=== PATIENT | female | born 1990 | race African-American/Black ===

== ENCOUNTER → 2016-11-11 | Outpatient (CLI) | payer OTHER ==
[2016-05-28] VITALS: BP 105/57
[~2016-11-11] MED LIST: HYDR-971 PO
== END | disposition home or self-care (01) ==
LOC: SPEC 11:40
PROVIDERS: ATTEND Family Medicine
DX: Z34.90 Encounter for supervision of normal pregnancy, unspecified, unspecified trimester (principal)
CPT/HCPCS: 36415; 87653

== ENCOUNTER 2016-12-04 18:32 | Inpatient (IN) | payer OTHER ==
[~2016-12-04] VITALS: Ht 175.3 cm; Wt 110.2 kg
[2016-12-04] MEDS ORDERED: 0.9 % SODIUM CHLORIDE 10 ML DISP.SYRIN. IV PRN (18:45)
[2016-12-04] MEDS ORDERED: TERBUTALINE 1 MG/ML VIAL. SQ PRN (18:45)
[2016-12-04] MEDS ORDERED: DINOPROSTONE 10 MG SUPP.VAG VG ONE (18:45)
[2016-12-04] MEDS ORDERED: OXYTOCIN 30 UNIT/500 ML PREMIX 500 ML IV PRN (18:45)
[2016-12-04] MEDS ORDERED: IBUPROFEN 600 MG TABLET. PO PRN (18:45)
[2016-12-04] MEDS ORDERED: LIDOCAINE 1% PF 30 ML VIAL. INJ PRN (18:45)
[2016-12-04 19:45] LABS: BASO % 0 % (0-3); EOS % 1 % (0-3); HEMATOCRIT 29.3 % (36.0-47.0); HEMOGLOBIN 9.5 g/dL (12.0-15.5); LYMPH # 1.4 x10^3/uL (1.0-4.8); LYMPH % 22 % (24-48); MEAN CORPUSCULAR HEMOGLOBIN 28 pg (25-35); MEAN CORPUSCULAR HGB CONC 33 g/dL (31-37); MEAN CORPUSCULAR VOLUME 85 fL (79-100); MONO % 8 % (0-9); NEUT % 69 % (31-73); PLATELET COUNT 192 x10^3/uL (140-400); RED BLOOD COUNT 3.44 x10^6/uL (3.50-5.40); RED CELL DISTRIBUTION WIDTH 15.6 % (11.5-14.5); WHITE BLOOD COUNT 6.2 x10^3/uL (4.0-11.0)
[2016-12-04 21:29] VITALS: BP 121/75
[2016-12-05] MEDS ORDERED: ZOLPIDEM 5 MG TABLET. PO PRN
[2016-12-05] MEDS ORDERED: AMPICILLIN SODIUM 2 GM in IV NORMAL SALINE 100ML 100 ML IV ONE (08:00)
[2016-12-05] MEDS ORDERED: OXYTOCIN 30 UNIT/500 ML PREMIX 500 ML IV PRN (08:00)
--- NOTE | 2016-12-05 08:32 | PDOC1 ---
OB - History Hx of Present Care: Good Care Ultrasounds: Normal mid trimester US Obstetrical Complications: None Medical Complications: Respiratory (Asthma- well controlled) Past Family/Social History * Past Medical, Surgical, Family and Obstetric Histories reviewed from chart. Blood Type: O+ Rubella: Immune RPR/VDRL: Negative GBS Status: Positive HBsAG: Unknown (Surface Antibody positive- immune) OB - Chief Complaint & HPI Date of Admission: Date of Admission: Dec 04, 2016 at 18:32 Chief Complaint/History : 2 Para: 1 EDC: Dec 12, 2016 EGA: 39wga Reason for admission: induction of labor Indication for induction: maternal discomfort Admission Nurse Assessment Rev: Yes Problems: OB - Admission Exam Physical Exam Vitals: VS - Last 72 Hours, by Label Date Time Temp Pulse Resp B/P Pulse Ox O2 Delivery O2 Flow Rate FiO2 12/04/16 21:29 97.6 93 18 121/75 Room Air 97.6 HEENT: Normal, Nasal Mucosa Normal, Oropharynx Normal, Moist Membranes, Fontanelles Normal Heart: Regular Rate Lungs: Clear, Equal Abdomen: Gravid Extremities: Normal Pulses, No tenderness or swelling Reflexes: Normal Cervical Dilatation: None Effacement: 75% Station: -2 Membranes: Intact Heart Rate: Normal Accelerations: Accelerations Present Decelerations: No decelerations Short Term Variability: Present District Captain Variability: Moderate Contractions on Admission: None A/P Pt is a 26yo @39wga admitted for IOL 1)IOL- s/p Cervadil last night. Will start Pitocin this morning 2)GBS+ will wait until pt is in labor prior to starting antiobiotics 3)Pain medication- pt interested in IV pain medicine 4)Bottlefeeding Problems: LALIT BOWMAN MD Dec 05, 2016 08:32
[2016-12-05] MEDS: IV RINGERS,LACTATED 1000ML 1,000 ML IV SCH ×2 (08:39→16:52)
[2016-12-05] MEDS: AMPICILLIN SODIUM 1 GM in IV NORMAL SALINE 50ML 50 ML IV SCH ×2 (12:00→20:00)
[2016-12-05] MEDS ORDERED: DINOPROSTONE 10 MG SUPP.VAG VG ONE (17:30)
[2016-12-06] MEDS ORDERED: OXYTOCIN in NORMAL SALINE PREMIX 30 UNIT/500 ML BAG. IV ONE (07:00)
[2016-12-06] MEDS ORDERED: IBUPROFEN 600 MG TABLET. PO PRN (13:30)
[2016-12-06] MEDS: AMPICILLIN SODIUM 1 GM in IV NORMAL SALINE 50ML 50 ML IV SCH ×2 (14:02→18:00)
[2016-12-06] MEDS: IV RINGERS,LACTATED 1000ML 1,000 ML IV SCH (18:17)
--- NOTE | 2016-12-06 18:36 | PDOC3 ---
Discharge Summary* Date of Admission: Dec 05, 2016 Date of Discharge: Dec 06, 2016 Admitting Diagnosis IOL Final Diagnosis Problems Medical Problems: (1) Failed induction of labor Status: Acute Brief Hospital Course Pt is a 26yo @39wga admitted for IOL 1)IOL- s/p Cervadil x2 nights. Cervix open to a tight 1. Pt opted to go home vs staying for another evening of induction. 2)GBS+ pt did receive 1 dose of Ampicillin Disposition/Orders: D/C to Home CONDITION AT DISCHARGE: Stable Diet: Renal Miscellaneous Medications Info (No Known Medications Prior To Admisstion) 1 EACH [facility] (Reported) PCP Follow up with Dr. Bowman this coming Thursday Time Spent Total time spent with patient [] minutes for coordination of care, counseling, and education. LALIT BOWMNA MD Dec 06, 2016 18:36
== END 2016-12-06 18:42 | disposition home or self-care (01) | DRG 781 ==
LOC: 3 SO LND 18:32
PROVIDERS: ADMIT Family Medicine; ATTEND Family Medicine
PROC: 3E0P7GC Introduction of Other Therapeutic Substance into Female Reproductive, Via Natural or Artificial Opening (ICD-10-PCS; principal; 2016-12-04)
DX: O61.0 Failed medical induction of labor (principal); O99.820 Streptococcus B carrier state complicating pregnancy; Z3A.39 39 weeks gestation of pregnancy; O99.513 Diseases of the respiratory system complicating pregnancy, third trimester; J45.909 Unspecified asthma, uncomplicated
CPT/HCPCS: 36415; 85027; 86593; 86850; 86900; 86901; J2590; J7120

== ENCOUNTER 2016-12-14 19:06 | Inpatient (IN) | payer OTHER ==
[~2016-12-14] VITALS: Ht 175.3 cm; Wt 110.2 kg
[2016-12-14] MEDS ORDERED: TERBUTALINE 1 MG/ML VIAL. SQ PRN (19:15)
[2016-12-14] MEDS ORDERED: BUTORPHANOL 2 MG/ML VIAL. IV PRN (19:15)
[2016-12-14] MEDS ORDERED: FENTANYL PF 100 MCG/2 ML VIAL. IV PRN (19:15)
[2016-12-14] MEDS ORDERED: LIDOCAINE 1% PF 30 ML VIAL. INJ PRN (19:15)
[2016-12-14] MEDS ORDERED: 0.9 % SODIUM CHLORIDE 10 ML DISP.SYRIN. IV PRN (19:15)
[2016-12-14] MEDS ORDERED: OXYTOCIN 30 UNIT/500 ML PREMIX 500 ML IV PRN (19:15)
[2016-12-14] MEDS: IV RINGERS,LACTATED 1000ML 1,000 ML IV SCH (19:58)
[2016-12-14] MEDS ORDERED: DINOPROSTONE 10 MG SUPP.VAG VG ONE (20:00)
[2016-12-14 20:07] LABS: HEMATOCRIT 29.6 % (36.0-47.0); HEMOGLOBIN 9.6 g/dL (12.0-15.5); RED BLOOD COUNT 3.54 x10^6/uL (3.50-5.40); RED CELL DISTRIBUTION WIDTH 15.7 % (11.5-14.5); WHITE BLOOD COUNT 6.9 x10^3/uL (4.0-11.0)
[2016-12-14 20:09] LABS: BILIRUBIN,URINE NEGATIVE (NEG); GLUCOSE,URINE NEGATIVE (NEG); NITRITE,URINE NEGATIVE (NEG); PH,URINE 6.5; PROTEIN,URINE 30 mg/dL (NEG-TRACE)
[2016-12-14 20:22] VITALS: BP 104/58
[2016-12-14 20:26] LABS: BACTERIA,URINE MODERATE /HPF (0-FEW); RBC,URINE 0 /HPF (0-2); SQUAMOUS EPITHELIAL CELL,UR MOD /LPF; WBC,URINE OCC /HPF (0-4)
[2016-12-14] MEDS ORDERED: ZOLPIDEM 5 MG TABLET. PO PRN (20:30)
[2016-12-15] MEDS ORDERED: AMPICILLIN SODIUM 2 GM in IV NORMAL SALINE 100ML 100 ML IV ONE (07:00)
[2016-12-15] MEDS ORDERED: OXYTOCIN 30 UNIT/500 ML PREMIX 500 ML IV PRN (08:00)
--- NOTE | 2016-12-15 10:02 | PDOC1 ---
OB - History Hx of Present Care: Good Care Ultrasounds: Normal mid trimester US Obstetrical Complications: None Medical Complications: None Past Family/Social History * Past Medical, Surgical, Family and Obstetric Histories reviewed from chart. Blood Type: O+ Rubella: Immune RPR/VDRL: Negative GBS Status: Positive HBsAG: Negative OB - Chief Complaint & HPI Date of Admission: Date of Admission: Dec 14, 2016 at 19:06 Chief Complaint/History : 1 Para: 1 EDC: Dec 12, 2016 Reason for admission: induction of labor Indication for induction: maternal discomfort Admission Nurse Assessment Rev: Yes Problems: OB - Admission Exam Physical Exam Vitals: VS - Last 72 Hours, by Label Date Time Temp Pulse Resp B/P Pulse Ox O2 Delivery O2 Flow Rate FiO2 12/14/16 20:22 98.2 93 20 104/58 Room Air 98.2 HEENT: Normal, Nasal Mucosa Normal, Oropharynx Normal, Moist Membranes, Fontanelles Normal Heart: Regular Rate Lungs: Clear, Equal Abdomen: Gravid Extremities: Normal Pulses, No tenderness or swelling Reflexes: Normal Cervical Dilatation: 1cm Effacement: 75% Station: -3 Membranes: Intact Heart Rate: Normal Accelerations: Accelerations Present Decelerations: No decelerations Short Term Variability: Present Fish Receiver Variability: Moderate Contractions on Admission: None A/P Pt is a 26yo @40.2wga admitted for IOL 1)IOL- s/p Cervadil last night. Will start Pitocin this morning 2)GBS+ will wait until pt is in labor prior to starting antiobiotics 3)Pain medication- pt interested in IV pain medicine 4)Bottlefeeding Problems: LALIT BOWMAN MD Dec 15, 2016 10:02
[2016-12-15] MEDS: IV RINGERS,LACTATED 1000ML 1,000 ML IV SCH ×3 (12:00→20:00)
[2016-12-15] MEDS: AMPICILLIN SODIUM 1 GM in IV NORMAL SALINE 50ML 50 ML IV SCH ×4 (15:00→23:00)
--- NOTE | 2016-12-15 20:28 | PDOC ---
VAGINAL DELIVERY DATE DATE: 12/15/16 TIME 2012 : 2 Para: 2 EDC: Dec 12, 2016 EGA: 40.3 VAGINAL DELIVERY: VTX PLACENTA: Spontaneous 8/9 SEX: Female WEIGHT Weight 3535g or 7 pounds 13oz Nuchal Cord: No Amniotic Fluid: Clear PAIN: Local EPISIOTOMY: No EXTENSION: No EBL 300cc COMPLICATIONS Shoulder Dystocia CONDITION Stable FLUID DYNAMICIST Dr. Bowman Signs of Intrauterine Infectio: None Shoulder Dystocia: Yes, Initial traction, Camila Maneuver, Suprapubic Pressure DIAGNOSIS Pt is a 26yo G2 now P2 s/p at 40.3wga 1) 2)GBS+ s/p 2 doses of antibiotics 3)Bottlefeeding Problems: LALIT BOWMAN MD Dec 15, 2016 20:28
[2016-12-16 00:45] VITALS: BP 98/61
[2016-12-16] MEDS: IBUPROFEN 600 MG TABLET. PO PRN ×3 (02:39→20:33)
[2016-12-16] MEDS: AMPICILLIN SODIUM 1 GM in IV NORMAL SALINE 50ML 50 ML IV SCH (03:00)
[2016-12-16 03:35] VITALS: BP 110/66
[2016-12-16] MEDS: IV RINGERS,LACTATED 1000ML 1,000 ML IV SCH (04:00)
--- NOTE | 2016-12-16 08:39 | PDOC ---
OB Progress Note Date of Service 12/16/16 Time of Evaluation 08 Date: 12/15/16 Time: 2012 Notes Pt states that she is doing well. Decided to try . Some uterine cramping with . Vaginal bleeding less than a period. Pain well controlled with Ibuprofen. OB VITAL SIGNS: Temperature (98.8F), Blood Pressure (110/66), Pulse (93), O2 Sat (99%) Lab Laboratory Tests Test 12/14/16 19:45 12/14/16 19:50 Urine Collection Type Unknown Urine Color Yellow Urine Clarity Clear Urine pH 6.5 Urine Specific [facility] 1.025 Urine Protein 30mg/dL (NEG-TRACE) Urine Glucose (UA) Negativemg/dL (NEG) Urine Ketones (Stick) Negativemg/dL (NEG) Urine Blood Negative (NEG) Urine Nitrite Negative (NEG) Urine Bilirubin Negative (NEG) Urine Urobilinogen Dipstick 1.0mg/dL (0.2 mg/dL) Urine Leukocyte Esterase Trace (NEG) Urine RBC 0/HPF (0-2) Urine WBC Occ/HPF (0-4) Urine Squamous Epithelial Cells Mod/LPF Urine Bacteria Moderate/HPF (0-FEW) Urine Mucus Marked/LPF White Blood Count 6.9x10^3/uL (4.0-11.0) Red Blood Count 3.54x10^6/uL (3.50-5.40) Hemoglobin 9.6g/dL (12.0-15.5) Hematocrit 29.6% (36.0-47.0) Mean Corpuscular Volume 84fL (79-100) Mean Corpuscular Hemoglobin 27pg (25-35) Mean Corpuscular Hemoglobin Concent 32g/dL (31-37) Red Cell Distribution Width 15.7% (11.5-14.5) Platelet Count 222x10^3/uL (140-400) RPR Titer Additional Testing Non reactive (Non Reactive) Medications Current Medications Sodium Chloride 3 ml 3 ml QSHIFT PRN IV AFTER MEDS AND BLOOD DRAWS Last administered on 12/15/16 07:57; Start 12/14/16 at 19:15 Lactated Ringer's (Iv Lactated Ringers) 1,000 ml @ 125 mls/hr Q8H IV Last administered on 12/15/16 12:48; Start 12/14/16 at 20:00; Stop 12/16/16 at 04:24 ; Status DC Butorphanol Tartrate (Stadol) 2 mg PRN Q1HR PRN IV Severe labor pain Last administered on 12/15/16 19:15; Start 12/14/16 at 19:15 Fentanyl Citrate (Fentanyl 2ml Vial) 100 mcg PRN Q30MIN PRN IV Severe pain Last administered on 12/15/16 17:59; Start 12/14/16 at 19:15 Terbutaline Sulfate (Brethine) 0.25 mg 1X PRN PRN SQ SEE COMMENTS; Start at 19:15; Stop 12/15/16 at 19:14; Status DC Lidocaine HCl 30 ml 30 ml 1X PRN PRN INJ SEE COMMENTS; Start 12/14/16 at 19:15; Stop 12/16/16 at 19:14 Ampicillin Sodium 2 gm/Sodium Chloride 100 ml @ 200 mls/hr 1X ONCE IV Last administered on 12/15/16 15:48; Start 12/15/16 at 07:00; Stop 12/15/16 at 07:29 ; Status DC Ampicillin Sodium 1 gm/Sodium Chloride 50 ml @ 100 mls/hr Q4H IV Last administered on 12/15/16 19:58; Start 12/15/16 at 11:00; Stop 12/16/16 at 04:24 ; Status DC Oxytocin/Sodium Chloride 500 ml @ 0 mls/hr CONT PRN IV SEE I/O RECORD Last administered on 12/15/16 08:16; Start 12/15/16 at 08:00 Oxytocin/Sodium Chloride (Oxytocin Premix Infusion) 500 ml @ 0 mls/hr CONT PRN PRN IV Post delivery bleeding; Start 12/14/16 at 19:15 Ibuprofen (Motrin) 600 mg PRN Q6HRS PRN PO PAIN Last administered on 12/16/16 02:39; Start 12/14/16 at 19:15 Dinoprostone (Cervidil) 10 mg 1X ONCE VG Last administered on 12/14/16 19:58; Start 12/14/16 at 20:00; Stop 12/14/16 at 20:01; Status DC Zolpidem Tartrate (Ambien) 5 mg PRN QHS PRN PO INSOMNIA, MAY REPEAT IN 1HR; Start 12/14/16 at 20:30 Ferrous Sulfate (Feosol) 325 mg DAILYWBKFT PO ; Start 12/16/16 at 09:00 Active Scripts Active Reported No Known Medications Prior To Admisstion (Info) Each 1 Each Exam GEN: NAD, AOx3 HEENT: MMM, EOMI, no scleral icterus/injection Cardiac: RRR, no M/R/G Lungs: CTAB Abd: uterus NTTP Ext: no erythema/edema LE bilaterally Assessment Pt is a 26yo G2 now P2 s/p at 40.3wga 1)- pain well controlled with Ibuprofen 2)GBS+ s/p 2 doses of antibiotics 3)Bottlefeeding/ 4)Anemia- started Ferrous Sulfate 5) control- pt considering BTL with LALIT Peng MD Dec 16, 2016 08:39
[2016-12-16] MEDS: FERROUS SULFATE 325 MG TABLET. PO SCH (09:08)
[2016-12-16 09:45] VITALS: BP 106/69
[2016-12-16 13:45] VITALS: BP 118/72
[2016-12-16 17:18] VITALS: BP 110/72
[2016-12-16 22:47] VITALS: BP 106/70
[2016-12-17 05:40] VITALS: BP 116/83
[2016-12-17] MEDS: FERROUS SULFATE 325 MG TABLET. PO SCH (09:05)
[2016-12-17 10:28] VITALS: BP 119/73
[2016-12-17] MEDS ORDERED: IBUP-985 PO (11:22)
[2016-12-17] MEDS ORDERED: FERR-26 PO (11:22)
--- NOTE | 2016-12-17 11:23 | PDOC3 ---
OB DISCHARGE SUMMARY DATE OF ADMISSION: 12/14/16 DATE OF DISCHARGE: 12/17/16 REASON FOR ADMISSION: Induction of labor INTRAPARTUM PROCEDURES: Spontanous Vag Deliv PROCEDURES: Antibiotics PROBLEM LIST AT DISCHARGE Problems Medical Problems: (1) Vaginal delivery Status: Acute DISCHARGE DIAGNOSIS: Post Term DISCHARGE INFORMATION: Activity (as tolerated), Diet (regular), Medications ( Ferrous Sulfate 325mg qday, Ibuprofen 600mg q6H prn pain), Instructions (Follow up 4-6 weeks), Discharge to (Home) HOSPITAL COURSE Pt is a 26yo G2 now P2 s/p at 40.3wga 1)- pain well controlled with Ibuprofen 2)GBS+ s/p 2 doses of antibiotics 3)Bottlefeeding/ 4)Anemia- started Ferrous Sulfate 5) control- pt considering BTL with LALIT Peng MD Dec 17, 2016 11:23
[2016-12-17 17:55] VITALS: BP 127/76
== END 2016-12-17 18:15 | disposition home or self-care (01) | DRG 775 ==
LOC: 3 SO LND 19:06 → 3 NORTH 12-15 23:59
PROVIDERS: ADMIT Family Medicine; ATTEND Family Medicine
PROC: 10E0XZZ Delivery of Products of Conception, External Approach (ICD-10-PCS; principal; 2016-12-15)
DX: O48.0 Post-term pregnancy (principal); O99.824 Streptococcus B carrier state complicating childbirth; O66.0 Obstructed labor due to shoulder dystocia; D64.9 Anemia, unspecified; O99.02 Anemia complicating childbirth; Z3A.40 40 weeks gestation of pregnancy; Z37.0 Single live birth
CPT/HCPCS: 36415; 81001; 85027; 86593; 86850; 86900; 86901; 87086; J0290; J2590; J3010; J7120

== ENCOUNTER 2017-07-21 22:26 | Emergency (ER) | payer OTHER ==
[~2017-07-21] VITALS: Ht 175.3 cm; Wt 104.3 kg
[~2017-07-21 22:26] MED LIST changes: +FERR-26 PO; +IBUP-985 PO
[2017-07-21 23:05] VITALS: BP 124/73
[2017-07-21] MEDS ORDERED: CYCLOBENZAPRINE 10 MG TABLET. PO ONE (23:45)
[2017-07-21] MEDS ORDERED: traMADol 50 MG TABLET PO ONE (23:45)
[2017-07-22] MEDS ORDERED: CYCL10TA2 PO (00:05)
[2017-07-22] MEDS ORDERED: TRAM-48 PO (00:05)
[2017-07-22] MEDS ORDERED: IBUP-1007 PO (00:05)
--- NOTE | 2017-07-22 00:06 | PHYS DOC ---
Past Medical History Past Medical History: Asthma Past Surgical History: No Surgical History Alcohol Use: None Drug Use: None Adult General Chief Complaint Chief Complaint: LOWER BACK PAIN OR INJURY HPI HPI Patient is a 26 year old female who presents here today complaining of lower back pain. Patient reports that she works as a [employer]. Patient reports she's had lower back pain for approximately 1 week now is been taking Aleve Tylenol and ibuprofen intermittently. Patient reports the pain starts in her right buttock and radiates all the way to her back. Patient denies any weakness to her upper or lower 70s. Patient has a loss of bowel or bladder function. Patient has any fevers shakes chills nausea vomiting diarrhea dysuria frequency urgency hematuria cough cold rhinorrhea. Patient reports she has a history of asthma. Denies any hypertension diabetes liver or kidney problems. Patient has any prior surgeries. Patient does not smoke drink or do drugs. Patient is not allergic to any medications. Patient's last menstrual period was 2 and half month ago and she is currently on the Mirena. His last dose of medication was at 9 PM when she took some ibuprofen. Review of systems: Constitutional: Denies fever or chills Eyes: Denies change in visual acuity, redness, or eye pain HENT: Denies nasal congestion or sore throat All other systems were reviewed and found to be within normal limits, except as documented in this note. Physical exam: Constitutional: Well developed, well nourished, no acute distress, non-toxic appearance. HENT: Normocephalic, atraumatic, bilateral external ears normal Eyes: PERRLA, EOMI, conjunctiva normal, no discharge. Neck: Normal range of motion, no tenderness, supple, no stridor. Cardiovascular:Heart rate regular rhythm Lungs & Thorax: Bilateral breath sounds clear to auscultation Abdomen: Bowel sounds normal, soft, no tenderness, no masses, no pulsatile masses. Skin: Warm, dry, no erythema, no rash. Back: No tenderness, no CVA tenderness. Extremities: No tenderness, no cyanosis, no clubbing, ROM intact, no edema. Neurologic: Alert and oriented X 3, normal motor function, normal sensory function, no focal deficits noted. Psychologic: Affect normal, judgement normal, mood normal. Patient's ER physical exam is significant for tenderness to palpation to her lower back greatest in the right lateral aspect of her lower back. Patient is tenderness to palpation to her right gluteal region. Patient has a normal neurological exam. Patient has normal sensation. Patient denies any perineal or perianal paresthesias. Patient is a bleeding without any difficulty. Patient's sensation and motor is within normal limits. Assessment and plan: This is a 26-year-old female who presents to the ER today secondary to low back pain. Likely secondary to a job-related strain. Patient will be given Flexeril and Ultram and will be sent home on ibuprofen. Patient's clinically and hemodynamically stable without any evidence of any neurological deficit. No suspicion for cord injury compression epidural abscess or infection. Patient has been instructed to follow-up with her primary care physician in one to 2 days for reevaluation. Current Medications Current Medications Current Medications Medications (Trade) Dose Ordered Sig/Kamala Start Time Stop Time Status Last Admin Dose Admin Cyclobenzaprine HCl (Flexeril) 10 mg 1X ONCE 07/21/17 23:45 07/21/17 23:46 DC 07/21/17 23:45 10 MG Tramadol HCl (Ultram) 50 mg 1X ONCE 07/21/17 23:45 07/21/17 23:46 DC 07/21/17 23:46 50 MG Allergies Allergies Allergies Coded Allergies Type Severity Reaction Last Updated Verified No Known Drug Allergies 04/26/16 No Current Patient Data Vital Signs Vital Signs Date Time Temp Pulse Resp B/P (MAP) Pulse Ox O2 Delivery O2 Flow Rate FiO2 07/21/17 23:46 16 100 Room Air 07/21/17 23:05 98.3 92 124/73 (90) 98.3 Lab Values Laboratory Tests Test 07/21/17 23:29 POC Urine HCG, Qualitative Hcg negative (Negative) EKG EKG [] Radiology/Procedures Radiology/Procedures [] Course & Med Decision Making Course & Med Decision Making Pertinent Labs and Imaging studies reviewed. (See chart for details) [] Dragon Disclaimer Dragon Disclaimer This electronic medical record was generated, in whole or in part, using a voice recognition dictation system. Departure Departure Impression: Primary Impression: Back strain Disposition: HOME, SELF-CARE Condition: IMPROVED Referrals: LALIT BOWMAN MD (PCP) Patient Instructions: Low Back Sprain with [facility] Scripts Tramadol Hcl (ULTRAM) 50 Mg Tablet 1 TAB PO Q6HRS, #14 TAB Prov: GENOVEVA ONTIVEROS MD 07/22/17 Ibuprofen (IBUPROFEN) 600 Mg Tablet 600 MG PO PRN Q6HRS Y for PAIN, #20 TAB Prov: GENOVEVA ONTIVEROS MD 07/22/17 Cyclobenzaprine Hcl (CYCLOBENZAPRINE HCL) 10 Mg Tablet 10 MG PO TID Y for MUSCLE PAIN, #20 TAB Prov: GENOVEVA ONTIVEROS MD 07/22/17 Problem Qualifiers Primary Impression: Back strain Encounter type: initial encounter Qualified Codes: S39.012A - Strain of muscle, fascia and tendon of lower back, initial encounter GENOVEVA ONTIVEROS MD Jul 22, 2017 00:06
== END 2017-07-22 00:09 | disposition home or self-care (01) ==
LOC: ER 22:26
DX: S39.012A Strain of muscle, fascia and tendon of lower back, initial encounter (principal); J45.909 Unspecified asthma, uncomplicated; X58.XXXA Exposure to other specified factors, initial encounter; Y93.89 Activity, other specified; Y99.8 Other external cause status; Y92.89 Other specified places as the place of occurrence of the external cause
CPT/HCPCS: 81025; 99283

== ENCOUNTER 2019-05-25 07:28 | Emergency (ER) | payer BC, OTHER ==
[~2019-05-25] VITALS: Ht 175.3 cm; Wt 105.2 kg
[~2019-05-25 07:28] MED LIST changes: +CYCL10TA2 PO; -FERR-26 PO; +FERR325T14 PO; +HYDR-3164 PO; -HYDR-971 PO; +IBUP-1007 PO; +TRAM-48 PO
[2019-05-25 07:30] VITALS: BP 139/98
[2019-05-25] MEDS ORDERED: CIPR250T30 PO (07:52)
[2019-05-25] MEDS ORDERED: NAPR-683 PO (07:52)
--- NOTE | 2019-05-25 07:52 | PHYS DOC ---
Past Medical History Past Medical History: Asthma Past Surgical History: No Surgical History Alcohol Use: None Drug Use: None Adult General Chief Complaint Chief Complaint: FOOT INJURY PAIN [facility] HPI Patient is a 28 year old female who presents with complaining of nail injury to left foot. Patient states she was walking barefoot on the stairs and accidentally stepped on a nail coming out of the stairs and injured her foot. Patient rated her pain for over 10 that getting worse with bearing weight. Patient denies focal neurodeficit and other injuries. According to EMR patient had tetanus immunization on March 2016. Review of Systems Review of Systems Constitutional: Denies fever or chills [] Eyes: Denies change in visual acuity, redness, or eye pain [] HENT: Denies nasal congestion or sore throat [] Respiratory: Denies cough or shortness of breath [] Cardiovascular: No additional information not addressed in HPI [] GI: Denies abdominal pain, nausea, vomiting, bloody stools or diarrhea [] : Denies dysuria or hematuria [] Musculoskeletal: Denies back pain or joint pain, reports extremity pain[] Integument: Denies rash or skin lesions [] Neurologic: Denies headache, focal weakness or sensory changes [] Endocrine: Denies polyuria or polydipsia [] All other systems were reviewed and found to be within normal limits, except as documented in this note. Allergies Allergies Allergies Coded Allergies Type Severity Reaction Last Updated Verified No Known Drug Allergies 04/26/16 No Physical Exam Physical Exam Constitutional: Well developed, well nourished, no distress, non-toxic appearance. [] HENT: Normocephalic, atraumatic. Eyes: PERRLA, EOMI, conjunctiva normal, no discharge. [] Neck: Normal range of motion, no tenderness, supple, no stridor. [] Cardiovascular:Heart rate regular rhythm, no murmur [] Lungs & Thorax: Bilateral breath sounds clear to auscultation [] Extremities: Puncture wound to left foot on volar side of forefoot without sign of infection or bleeding with mild tenderness, no cyanosis, no clubbing, ROM intact, no edema. [] Neurologic: Alert and oriented X 3, no focal deficits noted. [] Psychologic: Affect normal, judgement normal, mood normal. [] EKG EKG [] Radiology/Procedures Radiology/Procedures [] Course & Med Decision Making Course & Med Decision Making Evaluation of patient in ER showed 28-year-old female patient with puncture wound between the left foot. Tetanus immunization is up-to-date. Plan discharge patient home with diagnose of puncture wound and prescription of Cipro and Naprosyn. Patient did not want to have pain medication in ER. Dragon Disclaimer Dragon Disclaimer This electronic medical record was generated, in whole or in part, using a voice recognition dictation system. Departure Departure Impression: Primary Impression: Puncture wound of left foot Disposition: HOME, SELF-CARE (at 0750) Condition: STABLE Referrals: LALIT BOWMAN MD (PCP) Patient Instructions: Puncture Wound Additional Instructions: Keep wound clean and dry Follow-up with your primary care physician in 3-5 days Return to ER if not getting better Scripts Naproxen (NAPROSYN) 500 Mg Tablet 1 TAB PO BID for pain, #14 TAB Prov: MARLEY RAO MD 05/25/19 Ciprofloxacin Hcl (CIPRO) 250 Mg Tablet 1 TAB PO BID for infection, #14 TAB Prov: MARLEY RAO MD 05/25/19 Problem Qualifiers Primary Impression: Puncture wound of left foot Encounter type: initial encounter Qualified Codes: S91.332A - Puncture wound without foreign body, left foot, initial encounter MARLEY RAO MD May 25, 2019 07:52
== END 2019-05-25 08:00 | disposition home or self-care (01) ==
LOC: ER 07:28
DX: S91.332A Puncture wound without foreign body, left foot, initial encounter (principal); J45.909 Unspecified asthma, uncomplicated; W22.8XXA Striking against or struck by other objects, initial encounter; Y93.01 Activity, walking, marching and hiking; Y92.89 Other specified places as the place of occurrence of the external cause; Y99.8 Other external cause status
CPT/HCPCS: 99283